=== PATIENT | female | born 1975 | race American Indian/Alaskan Native ===

== ENCOUNTER 2021-02-09 08:00 | Outpatient (CLI) | payer OTHER ==
--- NOTE | 2021-02-09 14:18 | XRAY Report ---
PROCEDURE: Wrist 4 View RT INDICATIONS: SPRAIN OF RIGHT WRIST TECHNIQUE: 4 views of the wrist were acquired. COMPARISON: None FINDINGS: Bones: No fractures or dislocations. No suspicious bony lesions. Scaphoid view: Negative Soft tissues: No suspicious soft tissue calcifications. IMPRESSION: No acute fracture. No osseous lesion. If symptoms and/or clinical suspicion for pathology continue, f urther assessment with repeat plain films, or advanced imaging (e.g., CT, MRI, or bone scan) is recom mended for further assessment. Reviewed by: Janet Nair MD on 02/09/2021 2:17 PM PDT Approved by: Janet aNir MD on 02/09/2021 2:17 PM PDT Station ID: [id number]
== END 2021-02-09 23:59 | disposition home or self-care (01) ==
LOC: DI.S 08:00
PROVIDERS: ATTEND Emergency Medicine
DX: S63.591A Other specified sprain of right wrist, initial encounter (principal)

== ENCOUNTER 2021-02-11 13:48 | Emergency (ER) | payer OTHER, MEDICAID ==
[2021-02-11] MEDS ORDERED: ACETAMINOPHEN 325 MG TABLET PO STA (14:21)
--- NOTE | 2021-02-11 14:56 | ED Physician Documentation ---
PD HPI HEAD INJURY - Stated complaint Stated Complaint: HEAD PX - Chief complaint Chief Complaint: Neuro - History obtained from History obtained from: Patient - Additional information Additional information: Fell at work 2 days ago, simple trip and fall landing on her left mosque against the floor. There was no loss of consciousness. Since last night she has had more severe headache and neck pain on that side. She does not have headaches routinely. No possibility of . She declines pain medication. Review of Systems Ten Systems: 10 systems reviewed and negative Constitutional: reports: Reviewed and negative Ears: reports: Reviewed and negative Nose: reports: Reviewed and negative Throat: reports: Reviewed and negative PD PAST MEDICAL HISTORY - Allergies Allergies/Adverse Reactions: Allergies Allergy/AdvReac Type Severity Reaction Status Date / Time No Known Drug Allergies Allergy Verified 02/11/21 13:55 PD ED PE NORMAL - Vitals Vital signs reviewed: Yes - General General: Alert and oriented X 3, No acute distress - HEENT HEENT: PERRL, EOMI - Neck Neck: Supple, no meningeal sign, No bony TTP - Cardiac Cardiac: RRR, No murmur - Respiratory Respiratory: No respiratory distress, Clear bilaterally - Abdomen Abdomen: Non tender - Back Back: No CVA TTP, No spinal TTP - Derm Derm: Normal color, Warm and dry - Extremities Extremities: Other (Right wrist is in a splint. 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, No motor deficit, No sensory de ficit, Normal speech Eye Opening: Spontaneous Motor: Obeys Commands Verbal: Oriented GCS Score: 15 - Psych Psych: Normal mood, Normal affect Results - Vitals Vitals: Vital Signs - 24 hr 02/11/21 02/11/21 13:55 16:09 Temperature 36.9 C 36.9 C Heart Rate 71 57 L Respiratory 16 16 Rate Blood Pressure 160/95 H 129/90 H O2 Saturation 100 98 Oxygen O2 Source Room air - Rads (name of study) CT Head and Cspine Radiology: EMP read contemporaneously (NAD) PD MEDICAL DECISION MAKING - ED course ED course: 45-year-old woman with persistent and worsening concussive symptoms after a fall hitting her mosque. CT imaging was obtained and negative. Departure - Departure Disposition: 01 Home, Self Care Clinical Impression: Concussion Qualifiers: Encounter type: initial encounter Loss of consciousness presence/duration: without LOC Qualified Code(s): S06.0X0A - Concussion without loss of consciousness, initial encounter Condition: Good Record reviewed to determine appropriate education?: Yes Instructions: ED Head Injury Closed Comments: Tylenol or ibuprofen as needed for the pain. Return for new or worsening symptoms. Follow-up with your doctor next week for recheck. Discharge Date/Time: 02/11/21 16:10
--- NOTE | 2021-02-11 15:48 | CT Report ---
PROCEDURE: HEAD WO INDICATIONS: Head injury TECHNIQUE: Noncontrast 4.5 mm thick angled axial sections acquired from the foramen magnum to the vertex. For r adiation dose reduction, the following was used: automated exposure control, adjustment of mA and/or kV according to patient size. COMPARISON: None. FINDINGS: Image quality: Excellent. CSF spaces: Basal cisterns are patent. No extra-axial fluid collections. Ventricles are normal in size and shape. Brain: No midline shift. No intracranial masses or hemorrhage. Zarate-white matter interface is norm al. Skull and face: Calvarium and visualized facial bones are intact, without suspicious lesions. Sinuses: Visualized sinuses and mastoids are clear. IMPRESSION: No acute intracranial finding. Reviewed by: Chepe Euceda MD on 02/11/2021 3:47 PM PDT Approved by: Chepe Euceda MD on 02/11/2021 3:47 PM PDT Station ID: [id number]
--- NOTE | 2021-02-11 15:50 | CT Report ---
PROCEDURE: CERVICAL SPINE WO INDICATIONS: Head injury TECHNIQUE: Noncontrast 3 mm thick sections acquired from the skull base to the T4 level. Sagittal and coronal r eformats were then constructed. For radiation dose reduction, the following was used: automated exp osure control, adjustment of mA and/or kV according to patient size. COMPARISON: None. FINDINGS: Image quality: Excellent. Bones: No fractures or dislocations. Visualized superior ribs are intact. Soft tissues: Prevertebral soft tissues are normal in thickness. No paravertebral hematomas. No ap ical pneumothoraces. IMPRESSION: No CT evidence of acute traumatic cervical spine injury. Reviewed by: Chepe Euceda MD on 02/11/2021 3:49 PM PDT Approved by: Chepe Euceda MD on 02/11/2021 3:49 PM PDT Station ID: [id number]
[2021-02-11 16:10] VITALS: BP 129/90
== END 2021-02-11 16:10 | disposition home or self-care (01) ==
LOC: ED 13:48
DX: S06.0X0A Concussion without loss of consciousness, initial encounter (principal); W19.XXXA Unspecified fall, initial encounter
CPT/HCPCS: 70450; 72125; 99282; 99284; A9270

== ENCOUNTER 2021-04-02 13:04 | Emergency (ER) | payer OTHER ==
--- NOTE | 2021-04-02 14:25 | ED Physician Documentation ---
History of Present Illness - Stated complaint Stated Complaint: HEADACHE, SOA, BODY PX - Chief complaint Chief Complaint: General - Additonal information Additional information: 45-year-old female presents emergency department for evaluation of left-sided neck and arm pain. She reports a fall at work in early February in which she sustained a wrist sprain. She returned to work yesterday and after working she noticed that she had a lot of pain in the left side of the neck and shoulder that radiated to her arm. She denies that she has chest pain or shortness of air but says that working made the pain worse. She is concerned that she could have a pinched nerve she has no paresthesias in this arm. No new falls or trauma since the initial fall in early February. She is requesting that this visit be documented for labor and industry purposes. 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 - Past Surgical History Past Surgical History: Yes Ortho: Other /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 Left paraspinous muscle tenderness that radiates into the trapezius. No pain with axial loading. No paresthesias.). No: No bony TTP - Respiratory Respiratory: Clear bilaterally - Abdomen Abdomen: Normal bowel sounds, Soft, Non tender, Non distended - Back Back: No CVA TTP, No spinal TTP - Extremities Extremities: No deformity, No tenderness to palpate, Other (Full range of motion of the shoulders in all planes. No tenderness elicited. 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 Results - Vitals Vitals: Vital Signs - 24 hr 04/02/21 13:32 Temperature 36 C L Heart Rate 84 Respiratory 15 Rate Blood Pressure 136/74 H O2 Saturation 99 Oxygen O2 Source Room air - EKG (time done) 1430 Rate: Rate (enter#) Rhythm: NSR [place]: Normal Intervals: Normal MI QRS: Normal, Low voltage Ischemia: Normal ST segments Compare to prior EKG: Old EKG unavailable Computer interpretation: Agree with computer - Rads (name of study) cervical xray Radiology: EMP read indepedently (no acute findings) PD MEDICAL DECISION MAKING - ED course Complexity details: reviewed results, re-evaluated patient, d/w patient ED course: 45-year-old female presents emergency department for evaluation of left-sided neck pain that radiates into her left arm. She was seen in this ER the beginning in February after a fall at work. She returned to her work for the first time yesterday and felt that the neck pain increased after working. She was initially seen at walk-in this morning where they were concerned that her symptoms may be cardiac in etiology thus she was referred to the ER. Here in the emergency department she is denying any chest pain or shortness of air. The pain in her neck is worse with movement and is paraspinous. However she did not have any brina n with axial loading. Motor strength was preserved and she had full range of motion of the shoulder in all planes. X-ray of the neck does not show any acute pathology. I encouraged patient to continue follow-up with her primary care provider. She may benefit from physical therapy but further care to be dictated by PCP. Departure - Departure Disposition: 01 Home, Self Care Clinical Impression: Neck pain on left side Condition: Stable Record reviewed to determine appropriate education?: Yes Instructions: ED Neck Back Pain General Comments: The xray of your neck does not show any broken bones. I recommend that you continue to follow up with your primary provider. You may benefit from physical therapy. If your symptoms are not improving, then an MRI might be indicated. However this order would need to come from your primary provider. The EKG that we completed on you today was unremarkable for your age.
[2021-04-02 16:49] VITALS: BP 144/94
--- NOTE | 2021-04-02 17:22 | XRAY Report ---
PROCEDURE: Cervical Spine 2 View INDICATIONS: pain radiating from head to the left arm TECHNIQUE: 3 view(s) of the cervical spine were acquired. COMPARISON: Correlation is made with the prior cervical spine CT, 02/11/2021. FINDINGS: Bones: No fractures or dislocations to the T1 level. The lateral masses of C1 appear intact on the odontoid view. No suspicious bony lesions. Focal C5-C6 degenerative change is seen, as before. Soft tissues: No prevertebral soft tissue swelling. The visualized pulmonary apices are unremarkab le. IMPRESSION: No acute abnormality is seen by plain film. Focal C5-C6 degenerative change is again seen. Reviewed by: Ernie Armstrong MD on 04/02/2021 4:21 PM DARI Approved by: Ernie Armstrong MD on 04/02/2021 4:21 PM DARI Station ID: [id number]
== END 2021-04-02 16:49 | disposition home or self-care (01) ==
LOC: ED 13:04
DX: M54.2 Cervicalgia (principal); M79.602 Pain in left arm
CPT/HCPCS: 93005; 99282; 99283

== ENCOUNTER 2022-05-09 12:34 | Outpatient (CLI) | payer MEDICAID ==
--- NOTE | 2022-05-09 16:17 | XRAY Report ---
PROCEDURE: Foot 3 View RT INDICATIONS: PAIN IN RIGHT FOOT TECHNIQUE: 3 views of the foot were acquired. COMPARISON: None FINDINGS: Bones: No fractures or dislocations. No suspicious bony lesions. Prior first metatarsal osteotomy noted. Tiny plantar calcaneal spur noted Soft tissues: No tibiotalar joint effusion. Achilles tendon appears normal. IMPRESSION: Tiny plantar calcaneal spur. First metatarsal osteotomy, well-healed Reviewed by: Rivera Morales MD on 05/09/2022 3:16 PM DARI Approved by: Rivera Morales MD on 05/09/2022 3:16 PM AKJAMES Station ID: [id number]
== END 2022-05-09 12:35 | disposition home or self-care (01) ==
LOC: DI 12:34
PROVIDERS: ATTEND Naturopath
DX: M77.31 Calcaneal spur, right foot (principal); M79.671 Pain in right foot; Z98.890 Other specified postprocedural states

== ENCOUNTER 2022-11-04 16:29 | Emergency (ER) | payer OTHER, MEDICAID ==
[2022-11-04] MEDS ORDERED: IBUPROFEN 800 MG TABLET PO STA (16:45)
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
[2022-11-04 17:41] VITALS: BP 130/80
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
== END 2022-11-04 17:59 | disposition home or self-care (01) ==
LOC: ED 16:29
DX: S13.9XXA Sprain of joints and ligaments of unspecified parts of neck, initial encounter (principal); S39.012A Strain of muscle, fascia and tendon of lower back, initial encounter; S70.01XA Contusion of right hip, initial encounter; V59.60XA Unspecified occupant of pick-up truck or van injured in collision with unspecified motor vehicles in traffic accident, initial encounter; Y92.410 Unspecified street and highway as the place of occurrence of the external cause
CPT/HCPCS: 72125; 72128; 73502; 99284; A9270

== ENCOUNTER 2023-05-02 13:47 | Emergency (ER) | payer MEDICAID ==
[2023-05-02 14:22] VITALS: BP 145/80; O2SAT 100
[2023-05-02 14:48] LABS: BASOPHILS % (AUTO) 0.2 %; EOSINOPHILS # (AUTO) 0.2 10^3/uL (0.0-0.7); EOSINOPHILS % (AUTO) 3.6 %; HCT - HEMATOCRIT 44.9 % (37.0-47.0); HGB - HEMOGLOBIN 15.1 g/dL (12.0-16.0); LYMPHOCYTES # (AUTO) 1.1 10^3/uL (1.5-3.5); LYMPHOCYTES % (AUTO) 25.6 %; MEAN CORPUSCULAR HEMOGLOBIN 30.1 pg (27.0-31.0); MEAN CORPUSCULAR HGB CONC 33.6 g/dL (32.0-36.0); MEAN CORPUSCULAR VOLUME 89.6 fL (81.0-99.0); MONOCYTES # (AUTO) 0.4 10^3/uL (0.0-1.0); MONOCYTES % (AUTO) 9.1 %; NEUTROPHILS # (AUTO) 2.7 10^3/uL (1.5-6.6); NEUTROPHILS % (AUTO) 61.3 %; PLT - PLATELET COUNT 124 10^3/uL (130-450); RED BLOOD COUNT 5.01 10^6/uL (4.20-5.40); RED CELL DISTRIBUTION WIDTH 11.8 % (12.0-15.0); WHITE BLOOD COUNT 4.4 x10^3/uL (4.8-10.8)
[2023-05-02] MEDS ORDERED: CHERRY SYRUP 10 ML UDC PO ONE (14:48)
[2023-05-02] MEDS ORDERED: DEXAMETHASONE 10 MG/ML VIAL PO STA (14:48)
[2023-05-02] MEDS ORDERED: KETOROLAC 30 MG/ML VIAL IM STA (14:48)
--- NOTE | 2023-05-02 14:51 | ED Physician Documentation ---
History of Present Illness - Stated complaint Stated Complaint: COVID+ CHEST PRESSURE - Chief complaint Chief Complaint: Heent - History obtained from History obtained from: Patient, Family - History of Present Illness Timing: How many days ago (5) - Additonal information Additional information: 47-year-old with [place] has developed cough congestion and fever 5 days ago and has tested positive for COVID. She has previously not been immunized. She has developed some chest pain to the left side of her chest which radiates up into her neck. She has some shortness of breath associated with this. Review of Systems Constitutional: reports: Fever, Chills, Myalgias, Sweats Eyes: denies: Decreased vision Ears: denies: Ear pain Nose: reports: Rhinorrhea / runny nose, Congestion Throat: reports: Sore throat Cardiac: reports: Chest pain / pressure. 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 - Past Surgical History Past Surgical History: Yes Ortho: Other /TOE STAPLER: Hysterectomy - Present Medications Home Medications: Ambulatory Orders Medication Instructions Recorded Confirmed No Known Home Medications 05/02/23 05/02/23 - Allergies Allergies/Adverse Reactions: Allergies Allergy/AdvReac Type Severity Reaction Status Date / Time No Known Drug Allergies Allergy Verified 05/02/23 14:20 - Social History Does the pt smoke?: No Smoking Status: Never smoker Does the pt drink ETOH?: No Does the pt have substance abuse?: No - Immunizations Immunizations are current?: Yes PD ED PE NORMAL - Vitals Vital signs reviewed: Yes (hpyertensive) - General General: Alert and oriented X 3, No acute distress, Well developed/nourished - HEENT HEENT: Atraumatic, PERRL, EOMI, Ears normal, Moist mucous membranes, Other (erythema to the posterior pharynx is uniform bilat ) - Neck Neck: Supple, no meningeal sign, No bony TTP - Cardiac Cardiac: RRR, No murmur - Respiratory Respiratory: No respiratory distress, Other (rhoncherous breath sounds. 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 Relevant findings are: Rate: Rate (enter#) (61) QRS: Low voltage Ischemia: Non specific changes Compare to prior EKG: Unchanged from prior EKG (SPT 04/02/23 no changes) Computer interpretation: Agree with computer - Labs Labs: Laboratory Tests 05/02/23 05/02/23 14:41 14:41 WBC 4.4 L RBC 5.01 Hgb 15.1 Hct 44.9 MCV 89.6 MCH 30.1 MCHC 33.6 RDW 11.8 L Plt Count 124 L MPV 12.0 H Neut # (Auto) 2.7 Lymph # (Auto) 1.1 L [place] # (Auto) 0.4 Eos # (Auto) 0.2 Baso # (Auto) 0.0 Absolute Nucleated RBC 0.00 Nucleated RBC % 0.0 Sodium 137 Potassium 3.5 Chloride 104 Carbon Dioxide 26 Anion Gap 7.0 BUN 11 Creatinine 0.6 Estimated GFR (MDRD) 108 Glucose 90 Calcium 9.5 Total Bilirubin 0.7 AST 46 H ALT 62 H Alkaline Phosphatase 62 Troponin I High Sens 3.4 Total Protein 7.1 Albumin 4.4 Globulin 2.7 Albumin/Globulin Ratio 1.6 Lipase 5 L - Rads (name of study) chest Relevant Findings:: Prelim report reviewed (Impression: No acute cardiopulmonary process.), EMP independent interpretation of test PD Medical Decision Making - ED course Complexity details: reviewed results, re-evaluated patient, considered differential, d/w patient, d/w family Reviewed Lab Results: We reviewed a complete blood count showing a white blood cell count depressed at 4.4 hemoglobin hematocrit were normal. There is mild decrease in the platelets 224,000. Chemistries were with normal electrolytes normal kidney function liver functions were mildly elevated 46 for the AST and 62 for the ALT. I interpreted these laboratory studies as consistent with the possibility of infection with COVID. She also had troponin done which was negative. Chest x-ray is without evidence of infiltrate. An electrocardiogram is without evidence of ST elevation or abnormality.The electrocardiogram and troponin contribute to the conclusion that the patient's chest wall pain is costochondritis and not related to coronary syndrome. ED course: 47-year-old Bhavna Messer has COVID and she is 5 days into her illness. She is not eligible for Paxlovid as a result. She appears to be tolerating this well with normal oxygen saturation and no evidence of infiltrate on her chest x- ray. She is expected to do well with her illness. She is administered dexamethasone and Toradol for treatment of the costochondritis. Departure - Departure Disposition: 01 Home, Self Care Clinical Impression: Costochondritis, acute, COVID Condition: Stable Instructions: ED Chest Pain Costochondritis, Flu and Cold: Nutrition, Prevention and Treatment Tips Comments: Bhavna, today looks like you have COVID and pain in your chest wall from difficulty breathing. We have given you some medicine that should help with this today. We expect you to have improvement in your symptoms over the next 5 days. Be certain to use extra fluids and Tylenol for pain. Forms: PCP List Discharge Date/Time: 05/02/23 16:19
--- NOTE | 2023-05-02 15:03 | XRAY Report ---
PROCEDURE: Chest 1 View X-Ray INDICATIONS: Chest Pain, COVID TECHNIQUE: One view of the chest was acquired. COMPARISON: None. FINDINGS: Surgical changes and devices: None. Lungs and pleura: No pleural effusions or pneumothorax. Lungs are clear. Mediastinum: Mediastinal contours appear normal. Heart size is normal. Bones and chest wall: No suspicious bony lesions. Overlying soft tissues appear unremarkable. IMPRESSION: No acute cardiopulmonary process. Reviewed by: Ariel Haley on 05/02/2023 3:02 PM PDT Approved by: Ariel Haley on 05/02/2023 3:02 PM PDT Station ID: [id number]
[2023-05-02 15:10] LABS: ALBUMIN 4.4 g/dL (3.2-5.5); ALBUMIN/GLOBULIN RATIO 1.6 (1.0-2.2); BILIRUBIN,TOTAL 0.7 mg/dL (0.2-1.0); CALCIUM 9.5 mg/dL (8.5-10.3); CREATININE 0.6 mg/dL (0.6-1.3); POTASSIUM 3.5 mmol/L (3.5-4.5); TOTAL PROTEIN 7.1 g/dL (6.4-8.9)
[2023-05-02 15:17] LABS: TROPONIN I HIGH SENSITIVITY 3.4 ng/L (2.3-14.8)
== END 2023-05-02 16:19 | disposition home or self-care (01) ==
LOC: ED 13:47
DX: U07.1 COVID-19 (principal); M94.0 Chondrocostal junction syndrome [Tietze]
CPT/HCPCS: 36415; 71045; 80053; 83690; 84484; 85025; 93005; 96372; 99283; 99284; A9270